=== PATIENT | female | born 1980 ===

== ENCOUNTER 2018-10-27 12:32 | Outpatient (CLI) | payer BC | END 2018-10-27 12:33 | disposition home or self-care (01) | LOC: RAD 12:33 | DX: N93.9 Abnormal uterine and vaginal bleeding, unspecified (principal); N64.52 Nipple discharge ==

== ENCOUNTER 2018-11-03 07:40 | Outpatient (CLI) | payer BC | END 2018-11-03 07:41 | disposition home or self-care (01) | LOC: RAD 07:40 ==